=== PATIENT | female | born 1990 | race Caucasian/White ===

== ENCOUNTER 2020-12-18 16:41 | Emergency (ER) | payer OTHER ==
[~2020-12-18] VITALS: Ht 162.6 cm; Wt 68.2 kg
[~2020-12-18 16:41] MED LIST: CEPHALEXIN500 M1 PO; CIPRO 500MG TA500 MG PO; FLAGYL500 MG PO; MOTRIN 600600 MG/TAB PO; PERCOCET 325 MG1 TA2 PO; PRENATAL1 TA1 PO; SENOKOT S 50 MG1 TAB PO
[2020-12-18 16:48] VITALS: TEMP 98.5
[2020-12-18 17:24] VITALS: BP 128/76; PULSE 86
== END 2020-12-18 17:25 | disposition home or self-care (01) ==
LOC: COL.ER 16:41
DX: S80.11XA Contusion of right lower leg, initial encounter (principal); W01.198A Fall on same level from slipping, tripping and stumbling with subsequent striking against other object, initial encounter